=== PATIENT | male | born 1935 | race Caucasian/White ===

== ENCOUNTER 2016-10-27 09:42 | Emergency (ER) | payer MEDICARE ==
--- NOTE | 2016-10-27 10:04 | Emergency Department Record ---
History of Present Illness - General Chief Complaint: Abdominal Pain Stated Complaint: UNABLE TO HAVE BM Time Seen by Provider: 10/27/16 09:52 Source: Patient, Family Mode of Arrival: Ambulatory Limitations: No limitations - History of Present Illness Initial Comments: 81 yo male presents with decreased bowel movements for the last 2 weeks. He states he is typically fairly regular. The last two weeks there have been minimal bowel movements that are small and hard like "rabbit poop". He is on Miralax and drank magnesium citrate this morning. No vomiting but with some decreased appetite. No fevers or chills. No cough or chest pain. He is passing gas but feels like it is less. He has a history of hernia repair, gall bladder. He has had several colonoscopies in the past for anemia. PCP is Dr Valdes of [facility] Complaint: Abdominal pain, Other (Constipation) Onset/Timin -: Week(s) Location: LLQ, RLQ Radiation: Back Severity: Moderate Quality: Cramping Consistency: Intermittent Improves With: Nothing Worsens With: Nothing - Related Data Home Medications Medication Instructions Recorded Confirmed Last Taken Atenolol 12.5 mg PO DAILY 08/31/16 10/27/16 Unknown Atorvastatin Calcium 40 mg PO QHS 08/31/16 10/27/16 Unknown Cholecalciferol (Vitamin D3) 5,000 unit PO DAILY 08/31/16 10/27/16 Unknown [Vitamin D3] Insulin Glargine,Hum.rec.anlog 70 unit SQ QHS 08/31/16 10/27/16 Unknown [Lantus] Insulin Lispro [Humalog] 1 unit SQ ASDIR 08/31/16 10/27/16 Unknown Omeprazole 40 mg PO DAILY 08/31/16 10/27/16 Unknown Potassium Chloride [Klor-Con] 20 meq PO BID 08/31/16 10/27/16 Unknown Ramipril [Altace] 5 mg PO DAILY 08/31/16 10/27/16 Unknown Allergies Allergy/AdvReac Type Severity Reaction Status Date / Time colesevelam HCl AdvReac NAUSEA AND Verified 10/27/16 09:54 [From WelChol] VOMITING Allergies: Allergy Unknown none Uncoded 08/31/16 14:43 Latex Allergy: Allergy Unknown none Uncoded 08/31/16 14:43 Travel Screening - Travel/Exposure Within Last 30 Days Have you traveled within the last 30 days?: No Review of Systems Constitutional: Denies: Chills, Fever, Malaise Eyes: Denies: Eye discharge, Eye pain ENT: Denies: Congestion, Throat pain Respiratory: Denies: Cough, Dyspnea Cardiovascular: Denies: Chest pain, Palpitations, Syncope Endocrine: Denies: Fatigue Gastrointestinal: Reports: As per HPI, Abdominal pain, Constipation. Denies: Diarrhea, Hematemesis, Hematochezia, Nausea, Vomiting Genitourinary: Denies: Dysuria, Frequency Musculoskeletal: Denies: Arthralgia, Back pain, Joint swelling, Myalgia, Neck pain Skin: Denies: Bruising, Change in color, Rash Neurological: Denies: Headache Psychiatric: Denies: Anxiety Hematological/Lymphatic: Denies: Blood Clots, Easy bleeding, Easy bruising, Swollen glands Past Medical History - SOCIAL HISTORY Smoking Status: Never smoker Alcohol Use: None Drug Use: None - RESPIRATORY Hx Respiratory Disorders: No - CARDIOVASCULAR Hx Cardio Disorders: Yes Hx Hypertension: Yes Hx Pacemaker/Defib: Yes Comment:: PVD - NEURO Hx Neuro Disorders: No - GI Hx GI Disorders: Yes Hx Diverticulitis: Yes - Hx Genitourinary Disorders: No Comment:: CKD - ENDOCRINE Hx Endocrine Disorders: Yes Hx Diabetes: Yes - MUSCULOSKELETAL Hx Musculoskeletal Disorders: Yes Hx Arthritis: Yes - PSYCH Hx Psych Problems: No - HEMATOLOGY/ONCOLOGY Hx Hematology/Oncology Disorders: No Family Medical History Any Significant Family History?: Yes Family Hx Comment (NOT TO BE USED IN PLACE OF ITEMS BELOW): son- cancer Physical Exam - General General Appearance: Alert, Oriented x3, Cooperative, No acute distress Limitations: No limitations - Head Head exam: Normal inspection - Eye Eye exam: Normal appearance, PERRL. negative: Conjunctival injection - ENT ENT exam: Normal exam Ear exam: Normal external inspection Nasal Exam: Normal inspection Mouth exam: Normal external inspection - Neck Neck exam: Normal inspection, Full ROM. negative: Tenderness - Respiratory Respiratory exam: Normal lung sounds bilaterally. negative: Accessory muscle use, Decreased breath sounds, Prolonged expiratory, Respiratory distress - Cardiovascular Cardiovascular Exam: Regular rate, Normal rhythm, Normal heart sounds - GI/Abdominal GI/Abdominal exam: Soft. negative: Distended, Guarding, Rebound, Rigid, Tenderness - Rectal Rectal exam: Heme (+) stool, Normal inspection, Other (No stool felt on examination. No gross blood.). negative: Black stool, Bloody stool, Decreased rectal tone, Hemorrhoids, Tenderness - Extremities Extremities exam: Normal inspection, Full ROM, Normal capillary refill. negative: Tenderness - Back Back exam: Reports: Normal inspection, Full ROM. Denies: Muscle spasm, Rash noted, Tenderness - Neurological Neurological exam: Alert, Normal gait, Oriented X3 - Psychiatric Psychiatric exam: Normal affect, Normal mood - Skin Skin exam: Dry, Intact, Normal color, Warm Course Vital Signs 10/27/16 09:46 Temperature 97.9 F Pulse Rate 92 H Respiratory 20 Rate Blood Pressure 142/78 Pulse Ox 96 - Reevaluation(s) Reevaluation #1: Vitals reviewed Patient brought most recent labs Normal last CR. 10/27/16 10:05 Reevaluation #2: Scattered loops of non dilated loops of small bowel and large bowl, consistent with paralytic ileus. No FA 10/27/16 10:37 I discussed the finding with the patient. I recommend CT scan at this time for further evaluation 10/27/16 10:41 Reevaluation #3: The labs were reviewed. No acute changes of the CBC BMP with a glucose of 306 10/27/16 11:20 Reevaluation #4: Awaiting CT The patient has had small soft-liquid stools [place] no blood on inspection 10/27/16 12:[address] He has had additional bowel movements the CT report is pending The patient continues to feel greatly improved after a few bowel movements 10/27/16 13:12 10/27/16 14:02 Reevaluation #5: The CT scan demonstrates a 7cm body/tail pancreatic mass with mets to lung and liver. The patient was informed. He denies any knowledge of prior cancers. I will attempt to contact his PCP Ca19-9 tumor marker ordered 10/27/16 14:22 10/27/16 14:27 - Consultations Consultation #1: I SW Dr Branch He will arrange outpatient follow up for the new pancreatic mass with mets A copy of the CT was given to the patient Medical Decision Making - Lab Data Result diagrams: 10/27/16 10:45 10/27/16 10:45 Disposition Disposition: Discharge Clinical Impression: Pancreatic mass Constipation Qualifiers: Constipation type: other constipation type Qualified Code(s): K59.09 - Other constipation Disposition: Home, Self-Care Condition: (2) Stable Instructions: Constipation (ED), Pancreatic Cancer (GEN) Additional Instructions: Call Dr Branch for follow up and referral for medical oncology You will need a referral to medial oncology for the pancreatic mass that is likely a cancer I sent a blood test that is a tumor marker that can be follow up with your doctor Return if worse, fever, vomiting or new concerns Take a copy of your CT to all your appointments Forms: Patient Portal Access Time of Disposition: 14:28
[2016-10-27] MEDS ORDERED: 0.9 % SODIUM CHLORIDE 1,000 ML BAG IV ONE (10:39)
[2016-10-27 10:58] LABS: BASO % 1.6 % (0-6); GRAN % 64.6 % (47-80); HEMATOCRIT 43.3 % (42.0-52.0); HEMOGLOBIN 14.3 gm/dl (14.0-18.0); LYMPH % 18.9 % (16-45); MEAN CELL VOLUME 90.8 fl (81-97); MEAN PLATELET VOLUME 10.5 fl (7.4-10.4); MONO % 11.9 % (0-9); PLATELET COUNT 204 K/uL (130-400); RED BLOOD COUNT 4.77 M/uL (4.40-5.70); WHITE BLOOD COUNT W/O DIFF 9.8 K/uL (4.2-12.2)
[2016-10-27 11:12] LABS: ALBUMIN 3.8 gm/dL (3.5-5.0); ALKALINE PHOSPHATASE 161 U/L (38-126); ALT/SGPT 42 U/L (21-72); AST/SGOT 35 U/L (17-59); BILIRUBIN,TOTAL 0.93 mg/dL (0.2-1.3); BLOOD UREA NITROGEN 18 mg/dL (9-20); CREATININE 1.2 mg/dL (0.66-1.25); EST GLOMERULAR FILTRATION RATE > 60 ml/min; GLUCOSE,RANDOM 306 mg/dL (70-110); LIPASE 62 U/L (23-300); TOTAL PROTEIN 7.4 gm/dL (6.3-8.2)
--- NOTE | 2016-11-01 08:47 | RADIOLOGY REPORT ---
EXAM: ACUTE ABDOMEN SERIES HISTORY: CONSTIPATION, LOWER ABDOMINAL PAIN. TECHNIQUE: AP view of the chest and five views of the abdomen were obtained. Comparison: Abdomen film 11/04/14. FINDINGS: Left side pacemaker is present. The lungs are clear. The cardiomediastinal silhouette, diaphragm, and osseous structures are unremarkable. No free air. Scattered air fluid levels throughout the small and large bowel which are nondilated. No suspicious calcifications. IMPRESSION: 1. SCATTERED AIR FLUID LEVELS THROUGHOUT NONDISTENDED SMALL AND LARGE BOWEL IN THE ABDOMEN LIKELY DUE TO PARALYTIC ILEUS. NO FREE AIR. 2. NEGATIVE CHEST EXAMINATION. JOB NUMBER: [id number] MTDD
--- NOTE | 2016-11-01 09:30 | CT SCAN REPORT ---
EXAM: ABDOMEN AND PELVIS CT WITH IV CONTRAST HISTORY: GENERALIZED ABDOMINAL PAIN, DECREASED BOWEL MOVEMENTS. TECHNIQUE: Contiguous axial images from the lung bases to the symphysis pubis were obtained after the uneventful intravenous administration of 100 ml of Omnipaque 300. Oral contrast was also utilized. Comparison: Abdomen and pelvis CT 01/28/09. FINDINGS: There are greater than ten nodules in the lower lobes new from the prior study. There are at least five nodules in the right middle lobe. The nodules range in size from 5 mm to 11 mm. There is a new hypoenhancing lesion in the inferior aspect of the lateral segment of the left lobe of the liver measuring 2.2 cm. There is a new hypodense lesion in the posterior segment of the right lobe of the liver measuring 10 mm. The spleen is unremarkable. Unilocular cyst mid right kidney measures 2.7 cm. Numerous left renal cysts, the largest is in the interpolar region measuring 3 cm. The adrenals are unremarkable. There is a new hypoenhancing mass centered in the body and tail of the pancreas occluding the splenic vein measuring 7.6 x 2.8 cm. The mass contacts both the inferior aspect of the proximal stomach. Additional hypoenhancing soft tissue nodule abuts the lesser curvature of the stomach measuring 2.3 cm. Lymph node in the region of the celiac distribution measures 2.3 cm. The gallbladder is absent. The visualized loops of small and large bowel are of normal caliber with normal appendix. No excessive fecal material throughout the colon. No ascites. Moderate aortoiliac calcification. The mesenteric arteries are patent. Metastatic lymph node in the level of the SMA distribution to the left of midline measuring 1.2 x 1.1 cm. No lytic or blastic osseous lesion. IMPRESSION: 1. NEW LARGE PANCREATIC MASS CENTERED AT THE BODY AND TAIL OF THE PANCREAS CONSISTENT WITH PRIMARY MALIGNANCY. THERE IS EVIDENCE OF EXTENSIVE PULMONARY METASTASIS. TWO METASTATIC LIVER LESIONS WELL CHRISTINE METASTASIS IN THE MID ABDOMEN. 2. NO INTESTINAL OBSTRUCTION. NO EXCESSIVE FECAL MATERIAL THROUGHOUT THE COLON. 3. BENIGN BOSNIAK TYPE 1 RENAL CYSTS. JOB NUMBER: [id number] MTDD
== END 2016-10-27 15:02 | disposition home or self-care (01) ==
LOC: ER 09:42
DX: K86.89 Other specified diseases of pancreas (principal); K59.09 Other constipation; R10.84 Generalized abdominal pain; I12.9 Hypertensive chronic kidney disease with stage 1 through stage 4 chronic kidney disease, or unspecified chronic kidney disease; E11.22 Type 2 diabetes mellitus with diabetic chronic kidney disease; N18.9 Chronic kidney disease, unspecified; Z79.4 Long term (current) use of insulin
CPT/HCPCS: 99284 ×2; 83690; 85025; 80076; 80048; 74022; 74177; Q9967; J7030

== ENCOUNTER 2016-10-31 11:07 | Emergency (ER) | payer MEDICARE ==
[2016-10-31] MEDS ORDERED: ONDANSETRON HCL IV 4 MG/2 ML VIAL IVP ONE (11:23)
--- NOTE | 2016-10-31 11:27 | Emergency Department Record ---
History of Present Illness - General Chief Complaint: Fall Injury Stated Complaint: FALL/VOMITING Time Seen by Provider: 10/31/16 11:22 Source: Patient Mode of Arrival: Wheelchair Limitations: No limitations - History of Present Illness Initial Comments: 81 yo male presents to ED with a CC of nausea and dry heaves that began about 1.5 hours prior to arrival. Patient reports that he became nauseated and feel to the floor injuring his left elbow, denies injury to the head or neck. Patient was brought to the hospital for evaluation of possible pancreatitis as he was recently diagnosed with pancreatic cancer. Onset/Timin -: Hour(s) Fall From: Standing When Fall Occurred: 1-3 hours BAND [place]OVER Fall Witnessed: No Place Fall Occurred: Home Loss of Consciousness: None Prolonged Down Time?: No Symptoms Prior to Fall: None Location: Other Location - Extremities: Left: Elbow Associated Symptoms: Lightheaded, Other - [place] Coma Scale Eye Response: (4) Open spontaneously Motor Response: (6) Obeys commands Verbal Response: (5) Oriented [place] Total: 15 - Related Data Home Medications Medication Instructions Recorded Confirmed Last Taken Atenolol 12.5 mg PO DAILY 08/31/16 10/31/16 10/30/16 Atorvastatin Calcium 40 mg PO QHS 08/31/16 10/31/16 10/30/16 Cholecalciferol (Vitamin D3) 5,000 unit PO DAILY 08/31/16 10/31/16 10/30/16 [Vitamin D3] Insulin Glargine,Hum.rec.anlog 70 unit SQ QHS 08/31/16 10/31/16 10/30/16 [Lantus] Insulin Lispro [Humalog] 1 unit SQ ASDIR 08/31/16 10/31/16 10/30/16 Omeprazole 40 mg PO DAILY 08/31/16 10/31/16 10/30/16 Potassium Chloride [Klor-Con] 20 meq PO BID 08/31/16 10/31/16 10/30/16 Ramipril [Altace] 5 mg PO DAILY 08/31/16 10/31/16 10/30/16 Allergies Allergy/AdvReac Type Severity Reaction Status Date / Time colesevelam HCl AdvReac NAUSEA AND Verified 10/31/16 11:15 [From WelChol] VOMITING Allergies: Allergy Unknown none Uncoded 08/31/16 14:43 Latex Allergy: Allergy Unknown none Uncoded 08/31/16 14:43 Travel Screening - Travel/Exposure Within Last 30 Days Have you traveled within the last 30 days?: No Review of Systems Constitutional: Denies: Chills, Fever, Malaise, Night sweats Eyes: Denies: Eye discharge, Eye pain ENT: Denies: Congestion, Ear pain Respiratory: Denies: Cough, Dyspnea Cardiovascular: Denies: Chest pain, Dyspnea on exertion Endocrine: Denies: Fatigue, Heat or cold intolerance Gastrointestinal: Reports: Nausea, Vomiting. Denies: Abdominal pain Genitourinary: Denies: Incontinence, Retention Musculoskeletal: Reports: Arthralgia (left elbow). Denies: Back pain, Gout, Joint swelling Skin: Denies: Bruising, Change in color Neurological: Denies: Abnormal gait, Confusion, Headache, Numbness, Seizure, Weakness Psychiatric: Denies: Anxiety Hematological/Lymphatic: Denies: Anemia, Blood Clots Past Medical History - SOCIAL HISTORY Smoking Status: Never smoker Alcohol Use: None Drug Use: None - RESPIRATORY Hx Respiratory Disorders: No - CARDIOVASCULAR Hx Cardio Disorders: Yes Hx Hypertension: Yes Hx Pacemaker/Defib: Yes Comment:: PVD - NEURO Hx Neuro Disorders: No - GI Hx GI Disorders: Yes Hx Diverticulitis: Yes - Hx Genitourinary Disorders: No Comment:: CKD - ENDOCRINE Hx Endocrine Disorders: Yes Hx Diabetes: Yes - MUSCULOSKELETAL Hx Musculoskeletal Disorders: Yes Hx Arthritis: Yes - PSYCH Hx Psych Problems: No - HEMATOLOGY/ONCOLOGY Hx Hematology/Oncology Disorders: No Family Medical History Any Significant Family History?: Yes Family Hx Comment (NOT TO BE USED IN PLACE OF ITEMS BELOW): son- cancer Physical Exam - General General Appearance: Alert, Oriented x3, Cooperative, No acute distress Limitations: No limitations - Head Head exam: Atraumatic, Normocephalic, Normal inspection Head exam detail: negative: Abrasion, Contusion, Alfonso's sign, General tenderness, Hematoma, Laceration - Eye Eye exam: Normal appearance. negative: Conjunctival injection, Periorbital swelling, Periorbital tenderness, Scleral icterus - ENT Ear exam: negative: Auricular hematoma, Auricular trauma Nasal Exam: negative: Active bleeding, Discharge, Dried blood, Foreign body Mouth exam: negative: Drooling, Laceration, Muffled voice, Tongue elevation - Neck Neck exam: Normal inspection. negative: Meningismus, Tenderness - Respiratory Respiratory exam: Normal lung sounds bilaterally. negative: Rhonchi, Stridor, Wheezes - Cardiovascular Cardiovascular Exam: Regular rate, Normal rhythm, Normal heart sounds Peripheral Pulses: 3+: Radial (L) - GI/Abdominal GI/Abdominal exam: Soft. negative: Rebound, Rigid, Tenderness - Rectal Rectal exam: Deferred - exam: Deferred - Extremities Extremities exam: Full ROM, Other (mild abrasion to the left proximal forearm/ elbow, FROM, no pain with ROM). negative: Calf tenderness, Pedal edema, Tenderness - Back Back exam: Denies: CVA tenderness (R), CVA tenderness (L) - Neurological Neurological exam: Alert, Normal gait, Oriented X3 - Psychiatric Psychiatric exam: Normal affect, Normal mood - Skin Skin exam: Normal color. negative: Abrasion Type of lesion: negative: abrasion Course Vital Signs 10/31/16 11:10 Temperature 97.4 F L Pulse Rate 74 Respiratory 20 Rate Blood Pressure 178/92 Pulse Ox 93 L - Reevaluation(s) Reevaluation #1: 10/31/16 12:10 Labs reviewed, WBC 13.4, otherwise labs appears at her baseline. Reevaluation #2: 10/31/16 12:15 Patient was updated on all results, reports that he is feeling much better. Will perform ambulation trial for his previous dizziness symptoms. Reevaluation #3: 10/31/16 12:31 EKG: NSR 67 Incomplete RBBB T wave inversion III only unchanged from 01/28/2009 Reevaluation #4: 10/31/16 13:14 Patient reassessed following antivert, ambulated with steady gait and reports that he is feeling better. Patient and his daughter are asking to be discharged home at this time, and reports that he has an appointment with Dr. Branch tomorrow as well. Patient appears stable for discharge at this time. Medical Decision Making - Lab Data Result diagrams: 10/31/16 11:30 10/31/16 11:30 Disposition Disposition: Discharge Clinical Impression: Fall Qualifiers: Encounter type: initial encounter Qualified Code(s): W19.XXXA - Unspecified fall, initial encounter Nausea & vomiting Qualifiers: Vomiting type: unspecified Vomiting Intractability: non-intractable Qualified Code(s): R11.2 - Nausea with vomiting, unspecified Disposition: Home, Self-Care Condition: (2) Stable Instructions: Fall Prevention for Older Adults (ED) Additional Instructions: return to ED if your symptoms worsen or if you have any concerns. Follow-up with your family doctor in 1-3 days as directed. Forms: Patient Portal Access Time of Disposition: 13:15
[2016-10-31] MEDS ORDERED: 0.9 % SODIUM CHLORIDE 1000ML 500 ML IV SCH (11:30)
[2016-10-31 11:40] LABS: BASO % 0.7 % (0-6); EOS % 1.6 % (0-6); GRAN % 79.6 % (47-80); HEMATOCRIT 44.2 % (42.0-52.0); HEMOGLOBIN 14.6 gm/dl (14.0-18.0); LYMPH % 10.6 % (16-45); MEAN CELL VOLUME 89.8 fl (81-97); MEAN CORPUSCULAR HEMOGLOBIN 29.7 pg (27-33); MEAN PLATELET VOLUME 10.7 fl (7.4-10.4); MONO % 7.5 % (0-9); PLATELET COUNT 211 K/uL (130-400); RED BLOOD COUNT 4.92 M/uL (4.40-5.70); WHITE BLOOD COUNT W/O DIFF 13.4 K/uL (4.2-12.2)
[2016-10-31 11:54] LABS: ALB/GLOB RATIO 1.1 (1.1-1.8); ALBUMIN 4.1 gm/dL (3.5-5.0); ANION GAP 16.4 (7-16); BILIRUBIN,TOTAL 0.78 mg/dL (0.2-1.3); CARBON DIOXIDE 29.6 mmol/L (22-30); CREATININE 1.3 mg/dL (0.66-1.25)
[2016-10-31] MEDS ORDERED: MECLIZINE 25 MG TABLET PO ONE (12:16)
== END 2016-10-31 13:25 | disposition home or self-care (01) ==
LOC: ER 11:07
DX: S59.902A Unspecified injury of left elbow, initial encounter (principal); R42 Dizziness and giddiness; R11.2 Nausea with vomiting, unspecified; E11.9 Type 2 diabetes mellitus without complications; Z79.4 Long term (current) use of insulin; I10 Essential (primary) hypertension; W19.XXXA Unspecified fall, initial encounter; Y92.009 Unspecified place in unspecified non-institutional (private) residence as the place of occurrence of the external cause
CPT/HCPCS: 99284 ×2; 96374; 96361; 83690; 85025; 80053; 36416; 82948; 93005; 93010; J2405; J7030

== ENCOUNTER 2016-12-27 17:24 | Emergency (ER) | payer MEDICARE ==
[2016-12-27] MEDS ORDERED: MORPHINE SULFATE 5 MG/ML PFS IVP ONE (19:24)
[2016-12-27] MEDS: ONDANSETRON HCL IV 4 MG/2 ML VIAL IVP ONE (19:35)
[2016-12-27] MEDS: 0.9 % SODIUM CHLORIDE 1000ML 1,000 ML IV ONE (19:35)
[2016-12-27 19:37] LABS: HEMATOCRIT 40.8 % (42.0-52.0); HEMOGLOBIN 13.2 gm/dl (14.0-18.0); MEAN CELL VOLUME 95.1 fl (81-97); MEAN CORPUSCULAR HGB CONC 32.4 g/dl (32-36); PLATELET COUNT 282 K/uL (130-400); RED BLOOD COUNT 4.29 M/uL (4.40-5.70); RED CELL DISTRIBUTION WIDTH 15.1 % (11.5-14.5); WHITE BLOOD COUNT W/O DIFF 5.3 K/uL (4.2-12.2)
[2016-12-27 19:39] LABS: MEAN CORPUSCULAR HEMOGLOBIN 30.7 pg (27-33)
[2016-12-27 19:50] LABS: ALB/GLOB RATIO 0.9 (1.1-1.8); ALBUMIN 3.5 gm/dL (3.5-5.0); ALKALINE PHOSPHATASE 470 U/L (38-126); ALT/SGPT 103 U/L (21-72); ANION GAP 9.9 (7-16); AST/SGOT 170 U/L (17-59); BILIRUBIN,TOTAL 0.95 mg/dL (0.2-1.3); BLOOD UREA NITROGEN 14 mg/dL (9-20); CARBON DIOXIDE 29.1 mmol/L (22-30); EST GLOMERULAR FILTRATION RATE > 60 ml/min; TOTAL PROTEIN 7.2 gm/dL (6.3-8.2)
[2016-12-27 19:50] LABS: URINE APPEARANCE CLEAR; URINE BILIRUBIN NEGATIVE (NEGATIVE); URINE BLOOD NEGATIVE (NEGATIVE); URINE COLOR YELLOW; URINE KETONE TRACE (NEGATIVE); URINE LEUKOCYTE ESTERASE NEGATIVE (NEGATIVE); URINE NITRITE NEGATIVE (NEGATIVE); URINE PROTEIN NEGATIVE (NEGATIVE); URINE UROBILINOGEN 0.2 E.U./dL (0.20 - 1.00)
[2016-12-27 19:53] LABS: URINE GLUCOSE (UA) >=1000 mg/dL (NEGATIVE)
[2016-12-27 19:57] LABS: GLUCOSE,RANDOM 451 mg/dL (70-110)
--- NOTE | 2016-12-27 22:34 | Emergency Department Record ---
History of Present Illness - General Chief Complaint: Abdominal Pain Stated Complaint: CONSTIPATION Time Seen by Provider: 12/27/16 19:14 Source: Patient, Family Mode of Arrival: Wheelchair Limitations: No limitations - History of Present Illness Initial Comments: pt has constipation and abd pain. pt was recently dxd w pancreatic ca and is on chemo. pt is also having back pain. pt is on pain pills. pt has tried laxatives and mag citrate without success. MD Complaint: Abdominal pain Onset/Timin -: Hour(s) Location: L Flank, LLQ, Other (back) Migration to: No migration Severity: Moderate Quality: Aching Consistency: Constant Improves With: Nothing Worsens With: Movement Associated Symptoms: Constipation - Related Data Home Medications Medication Instructions Recorded Confirmed Last Taken Atenolol 12.5 mg PO DAILY 08/31/16 12/27/16 1 Day Ago Atorvastatin Calcium 40 mg PO QHS 08/31/16 12/27/16 1 Day Ago Cholecalciferol (Vitamin D3) 5,000 unit PO DAILY 08/31/16 12/27/16 1 Day Ago [Vitamin D3] Insulin Glargine,Hum.rec.anlog 70 unit SQ QHS 08/31/16 12/27/16 1 Day Ago [Lantus] Insulin Lispro [Humalog] 1 unit SQ ASDIR 08/31/16 12/27/16 1 Day Ago Omeprazole 40 mg PO DAILY 08/31/16 12/27/16 1 Day Ago Potassium Chloride [Klor-Con] 20 meq PO BID 08/31/16 12/27/16 1 Day Ago Ramipril [Altace] 5 mg PO DAILY 08/31/16 12/27/16 1 Day Ago Docusate Sodium [Colace] 100 mg PO DAILY 12/10/16 12/27/16 1 Day Ago Hydrocodone/Acetaminophen [[place] 1 tab PO Q6H PRN 12/10/16 12/27/16 1 Day Ago 7.5mg/325mg] Lactulose 15 gm PO TID 12/10/16 12/27/16 1 Day Ago Hydrocodone/Acetaminophen [[place] 1 tab PO Q6H PRN 12/27/16 12/27/16 1 Day Ago 7.5mg/325mg] Oxycodone HCl [Oxycontin] 10 mg PO Q12H 12/27/16 12/27/16 1 Day Ago Allergies Allergy/AdvReac Type Severity Reaction Status Date / Time colesevelam HCl AdvReac NAUSEA AND Verified 12/27/16 18:59 [From [facility]] VOMITING Travel Screening - Travel/Exposure Within Last 30 Days Have you traveled within the last 30 days?: No - Travel/Exposure Within Last Year Have you traveled outside the [place] in the last year?: No - Additonal Travel Details Have you been exposed to anyone with a communicable illness?: No - Travel Symptoms Symptom Screening: None Review of Systems Reviewed: No additional complaints except as noted below Constitutional: Reports: As per HPI. Denies: Chills, Fever, Malaise, Night sweats, Weakness, Weight change Eyes: Reports: As per HPI. Denies: Eye discharge, Eye pain, Photophobia, Vision change ENT: Reports: As per HPI. Denies: Congestion, Dental pain, Ear pain, Epistaxis , Hearing loss, Throat pain Respiratory: Reports: As per HPI. Denies: Cough, Dyspnea, Hemoptysis, Stridor, Wheezes Cardiovascular: Reports: As per HPI. Denies: Arrhythmia, Chest pain, Dyspnea on exertion, Edema, Murmurs, Orthopnea, Palpitations, Paroxysmal nocturnal dyspnea, Rheumatic Fever, Syncope Endocrine: Reports: As per HPI. Denies: Fatigue, Heat or cold intolerance, Polydipsia, Polyuria Gastrointestinal: Reports: As per HPI. Denies: Abdominal pain, Constipation, Diarrhea, Hematemesis, Hematochezia, Melena, Nausea, Vomiting Genitourinary: Reports: As per HPI. Denies: Dysuria, Frequency, Hematuria, Incontinence, Retention, Testicular pain, Testicular mass, Urgency Musculoskeletal: Reports: As per HPI. Denies: Arthralgia, Back pain, Gout, Joint swelling, Myalgia, Neck pain Skin: Reports: As per HPI. Denies: Bruising, Change in color, Change in hair/ nails, Lesions, Pruritus, Rash Neurological: Reports: As per HPI. Denies: Abnormal gait, Confusion, Headache, Numbness, Paresthesias, Seizure, Tingling, Tremors, Vertigo, Weakness Psychiatric: Reports: As per HPI. Denies: Anxiety, Auditory hallucinations, Depression, Homicidal thoughts, Suicidal thoughts, Visual hallucinations Hematological/Lymphatic: Reports: As per HPI. Denies: Anemia, Blood Clots, Easy bleeding, Easy bruising, Swollen glands Past Medical History - SOCIAL HISTORY Smoking Status: Never smoker Alcohol Use: None Drug Use: None - RESPIRATORY Hx Respiratory Disorders: No - CARDIOVASCULAR Hx Cardio Disorders: Yes Hx Hypertension: Yes Hx Pacemaker/Defib: Yes Comment:: PVD - NEURO Hx Neuro Disorders: No - GI Hx GI Disorders: Yes Hx Diverticulitis: Yes - Hx Genitourinary Disorders: No Comment:: CKD - ENDOCRINE Hx Endocrine Disorders: Yes Hx Diabetes: Yes - MUSCULOSKELETAL Hx Musculoskeletal Disorders: Yes Hx Arthritis: Yes - PSYCH Hx Psych Problems: No - HEMATOLOGY/ONCOLOGY Hx Hematology/Oncology Disorders: No Hx Cancer: Yes (Pancreatic oct 27) Hx Chemotherapy: Yes (12/27/2016) Family Medical History Any Significant Family History?: Yes Family Hx Comment (NOT TO BE USED IN PLACE OF ITEMS BELOW): son- cancer Physical Exam - General General Appearance: Alert, Oriented x3, Cooperative, Mild distress - Head Head exam: Normal inspection - Eye Eye exam: Normal appearance, PERRL, EOMI Pupils: Normal accommodation - ENT ENT exam: Normal exam, Mucous membranes moist, Normal external ear exam, Normal orophraynx Ear exam: Normal external inspection. negative: External canal tenderness Nasal Exam: Normal inspection. negative: Discharge, Sinus tenderness Mouth exam: Normal external inspection, Tongue normal Teeth exam: Normal inspection. negative: Dental caries Throat exam: Normal inspection. negative: Tonsillar erythema, Tonsillar exudate - Neck Neck exam: Normal inspection, Full ROM. negative: Tenderness - Respiratory Respiratory exam: Normal lung sounds bilaterally. negative: Respiratory distress - Cardiovascular Cardiovascular Exam: Regular rate, Normal rhythm, Normal heart sounds - GI/Abdominal GI/Abdominal exam: Soft, Normal bowel sounds, Tenderness - Rectal Rectal exam: Deferred - exam: Deferred - Extremities Extremities exam: Normal inspection, Full ROM, Normal capillary refill. negative: Tenderness - Back Back exam: Reports: Normal inspection, Full ROM. Denies: Muscle spasm, Rash noted, Tenderness - Neurological Neurological exam: Alert, CN II-XII intact, Normal gait, Oriented X3 - Psychiatric Psychiatric exam: Normal affect, Normal mood - Skin Skin exam: Dry, Intact, Normal color, Warm Course Vital Signs 12/27/16 12/27/16 18:47 20:49 Temperature 98.2 F 97.9 F Pulse Rate 92 H Pulse Rate [ 82 Pulse Ox Probe] Respiratory 20 24 Rate Blood Pressure 158/89 Blood Pressure 137/69 [Left Arm] Pulse Ox 95 92 L - Reevaluation(s) Reevaluation #1: 12/27/16 22:35 pt had good results w enema and feels better. pt has new comp fx of l1 w no loss of height. Medical Decision Making - Lab Data Result diagrams: 12/27/16 19:30 12/27/16 19:30 Lab Results 12/27/16 12/27/16 12/27/16 Range/Units 19:30 19:30 19:45 WBC 5.3 (4.2-12.2) K/uL RBC 4.29 L (4.40-5.70) M/uL Hgb 13.2 L (14.0-18.0) gm/dl Hct 40.8 L (42.0-52.0) % MCV 95.1 (81-97) fl MCH 30.7 (27-33) pg MCHC 32.4 (32-36) g/dl RDW 15.1 H (11.5-14.5) % Plt Count 282 (130-400) K/uL MPV 10.0 (7.4-10.4) fl Neutrophils % 83.0 H (47-80) % Lymphocytes % 10.0 L (16-45) % Monocytes % 7.0 (0-9) % Eosinophils % Not Reportable Basophils % Not Reportable Sodium 136 (136-145) mmol/L Potassium 5.5 H (3.5-5.1) mmol/L Chloride 97 L (98-107) mmol/L Carbon Dioxide 29.1 (22-30) mmol/L Anion Gap 9.9 (7-16) BUN 14 (9-20) mg/dL Creatinine 1.0 (0.66-1.25) mg/dL Estimated GFR > 60 ml/min Random Glucose 451 H* (70-110) mg/dL Calcium 8.4 L (8.5-10.1) mg/dL Total Bilirubin 0.95 (0.2-1.3) mg/dL AST 170 H (17-59) U/L ALT 103 H (21-72) U/L Alkaline Phosphatase 470 H (38-126) U/L Total Protein 7.2 (6.3-8.2) gm/dL Albumin 3.5 (3.5-5.0) gm/dL Globulin 3.7 (1.4-4.8) gm/dL Albumin/Globulin Ratio 0.9 L (1.1-1.8) Urine Color Yellow Urine Appearance Clear Urine pH 6.0 (5.0-8.0) Ur Specific [place] 1.020 (1.002-1.030) Urine Protein Negative (NEGATIVE) Urine Glucose (UA) >=1000 mg/dl H (NEGATIVE) Urine Ketones Trace H (NEGATIVE) Urine Blood Negative (NEGATIVE) Urine Nitrite Negative (NEGATIVE) Urine Bilirubin Negative (NEGATIVE) Urine Urobilinogen 0.2 (0.20 - 1.00) E.U./dL Ur Leukocyte Esterase Negative (NEGATIVE) Disposition Disposition: Discharge Clinical Impression: Lumbar compression fracture Qualifiers: Encounter type: initial encounter Fracture type: closed Qualified Code(s): S32.000A - Wedge compression fracture of unspecified lumbar vertebra, initial encounter for closed fracture Abdominal pain Qualifiers: Abdominal location: generalized Qualified Code(s): R10.84 - Generalized abdominal pain Constipation Qualifiers: Constipation type: other constipation type Qualified Code(s): K59.09 - Other constipation Hyperglycemia due to type 2 diabetes mellitus Qualifiers: Diabetes mellitus longterm insulin use: with supervisor carton and can supply use Qualified Code(s): E11.65 - Type 2 diabetes mellitus with hyperglycemia Disposition: Home, Self-Care Condition: (1) Good Instructions: Constipation (ED), Vertebral Compression Fracture (ED), Diabetic Hyperglycemia (ED) Additional Instructions: follow up with family doctor and with oncologist. return sooner if worse. Forms: Patient Portal Access
[2016-12-27] MEDS: HUMULIN R 100 UNIT/ML VIAL SQ ONE ×2 (22:50→23:32)
[2016-12-27] MEDS ORDERED: HUMULIN R 100 UNIT/ML VIAL SC ONE ×2 (23:30→23:59)
[2016-12-28] MEDS: HUMULIN R 100 UNIT/ML VIAL SQ ONE (00:16)
--- NOTE | 2016-12-28 01:45 | Emergency Department Record ---
History of Present Illness - General Chief Complaint: Abdominal Pain Stated Complaint: CONSTIPATION Time Seen by Provider: 12/27/16 19:14 Source: Patient, Family Mode of Arrival: Wheelchair Limitations: No limitations - History of Present Illness MD Complaint: Abdominal pain Onset/Timin -: Hour(s) Location: L Flank, LLQ, Other (back) Migration to: No migration Severity: Moderate Quality: Aching Consistency: Constant Improves With: Nothing Worsens With: Movement Associated Symptoms: Constipation - Related Data Home Medications Medication Instructions Recorded Confirmed Last Taken Atenolol 12.5 mg PO DAILY 08/31/16 12/27/16 1 Day Ago Atorvastatin Calcium 40 mg PO QHS 08/31/16 12/27/16 1 Day Ago Cholecalciferol (Vitamin D3) 5,000 unit PO DAILY 08/31/16 12/27/16 1 Day Ago [Vitamin D3] Insulin Glargine,Hum.rec.anlog 70 unit SQ QHS 08/31/16 12/27/16 1 Day Ago [Lantus] Insulin Lispro [Humalog] 1 unit SQ ASDIR 08/31/16 12/27/16 1 Day Ago Omeprazole 40 mg PO DAILY 08/31/16 12/27/16 1 Day Ago Potassium Chloride [Klor-Con] 20 meq PO BID 08/31/16 12/27/16 1 Day Ago Ramipril [Altace] 5 mg PO DAILY 08/31/16 12/27/16 1 Day Ago Docusate Sodium [Colace] 100 mg PO DAILY 12/10/16 12/27/16 1 Day Ago Hydrocodone/Acetaminophen [[place] 1 tab PO Q6H PRN 12/10/16 12/27/16 1 Day Ago 7.5mg/325mg] Lactulose 15 gm PO TID 12/10/16 12/27/16 1 Day Ago Hydrocodone/Acetaminophen [[place] 1 tab PO Q6H PRN 12/27/16 12/27/16 1 Day Ago 7.5mg/325mg] Oxycodone HCl [Oxycontin] 10 mg PO Q12H 12/27/16 12/27/16 1 Day Ago Allergies Allergy/AdvReac Type Severity Reaction Status Date / Time colesevelam HCl AdvReac NAUSEA AND Verified 12/27/16 18:59 [From [facility]] VOMITING Travel Screening - Travel/Exposure Within Last 30 Days Have you traveled within the last 30 days?: No - Travel/Exposure Within Last Year Have you traveled outside the [place] in the last year?: No - Additonal Travel Details Have you been exposed to anyone with a communicable illness?: No - Travel Symptoms Symptom Screening: None Review of Systems Constitutional: Reports: As per HPI. Denies: Chills, Fever, Malaise, Night sweats, Weakness, Weight change Eyes: Reports: As per HPI. Denies: Eye discharge, Eye pain, Photophobia, Vision change ENT: Reports: As per HPI. Denies: Congestion, Dental pain, Ear pain, Epistaxis , Hearing loss, Throat pain Respiratory: Reports: As per HPI. Denies: Cough, Dyspnea, Hemoptysis, Stridor, Wheezes Cardiovascular: Reports: As per HPI. Denies: Arrhythmia, Chest pain, Dyspnea on exertion, Edema, Murmurs, Orthopnea, Palpitations, Paroxysmal nocturnal dyspnea, Rheumatic Fever, Syncope Endocrine: Reports: As per HPI. Denies: Fatigue, Heat or cold intolerance, Polydipsia, Polyuria Gastrointestinal: Reports: As per HPI. Denies: Abdominal pain, Constipation, Diarrhea, Hematemesis, Hematochezia, Melena, Nausea, Vomiting Genitourinary: Reports: As per HPI. Denies: Dysuria, Frequency, Hematuria, Incontinence, Retention, Testicular pain, Testicular mass, Urgency Musculoskeletal: Reports: As per HPI. Denies: Arthralgia, Back pain, Gout, Joint swelling, Myalgia, Neck pain Skin: Reports: As per HPI. Denies: Bruising, Change in color, Change in hair/ nails, Lesions, Pruritus, Rash Neurological: Reports: As per HPI. Denies: Abnormal gait, Confusion, Headache, Numbness, Paresthesias, Seizure, Tingling, Tremors, Vertigo, Weakness Psychiatric: Reports: As per HPI. Denies: Anxiety, Auditory hallucinations, Depression, Homicidal thoughts, Suicidal thoughts, Visual hallucinations Hematological/Lymphatic: Reports: As per HPI. Denies: Anemia, Blood Clots, Easy bleeding, Easy bruising, Swollen glands Past Medical History - SOCIAL HISTORY Smoking Status: Never smoker Alcohol Use: None Drug Use: None - RESPIRATORY Hx Respiratory Disorders: No - CARDIOVASCULAR Hx Cardio Disorders: Yes Hx Hypertension: Yes Hx Pacemaker/Defib: Yes Comment:: PVD - NEURO Hx Neuro Disorders: No - GI Hx GI Disorders: Yes Hx Diverticulitis: Yes - Hx Genitourinary Disorders: No Comment:: CKD - ENDOCRINE Hx Endocrine Disorders: Yes Hx Diabetes: Yes - MUSCULOSKELETAL Hx Musculoskeletal Disorders: Yes Hx Arthritis: Yes - PSYCH Hx Psych Problems: No - HEMATOLOGY/ONCOLOGY Hx Hematology/Oncology Disorders: No Hx Cancer: Yes (Pancreatic oct 27) Hx Chemotherapy: Yes (12/27/2016) Family Medical History Any Significant Family History?: Yes Family Hx Comment (NOT TO BE USED IN PLACE OF ITEMS BELOW): son- cancer Physical Exam - General Limitations: No limitations Course Vital Signs 12/27/16 12/27/16 12/27/16 18:47 20:49 23:35 Temperature 98.2 F 97.9 F Pulse Rate 92 H Pulse Rate [ 82 93 H Pulse Ox Probe] Respiratory 20 24 16 Rate Blood Pressure 158/89 Blood Pressure 137/69 134/78 [Left Arm] Pulse Ox 95 92 L 88 L - Reevaluation(s) Reevaluation #1: 12/28/16 01:44 pt confessed that he had been drinking his daughters coca cola Medical Decision Making - Lab Data Result diagrams: 12/27/16 19:30 12/27/16 19:30 Lab Results 12/27/16 12/27/16 12/27/16 Range/Units 19:30 19:30 19:45 WBC 5.3 (4.2-12.2) K/uL RBC 4.29 L (4.40-5.70) M/uL Hgb 13.2 L (14.0-18.0) gm/dl Hct 40.8 L (42.0-52.0) % MCV 95.1 (81-97) fl MCH 30.7 (27-33) pg MCHC 32.4 (32-36) g/dl RDW 15.1 H (11.5-14.5) % Plt Count 282 (130-400) K/uL MPV 10.0 (7.4-10.4) fl Neutrophils % 83.0 H (47-80) % Lymphocytes % 10.0 L (16-45) % Monocytes % 7.0 (0-9) % Eosinophils % Not Reportable Basophils % Not Reportable Sodium 136 (136-145) mmol/L Potassium 5.5 H (3.5-5.1) mmol/L Chloride 97 L (98-107) mmol/L Carbon Dioxide 29.1 (22-30) mmol/L Anion Gap 9.9 (7-16) BUN 14 (9-20) mg/dL Creatinine 1.0 (0.66-1.25) mg/dL Estimated GFR > 60 ml/min POC Glucose (70-110) mg/dL Random Glucose 451 H* (70-110) mg/dL Calcium 8.4 L (8.5-10.1) mg/dL Total Bilirubin 0.95 (0.2-1.3) mg/dL AST 170 H (17-59) U/L ALT 103 H (21-72) U/L Alkaline Phosphatase 470 H (38-126) U/L Total Protein 7.2 (6.3-8.2) gm/dL Albumin 3.5 (3.5-5.0) gm/dL Globulin 3.7 (1.4-4.8) gm/dL Albumin/Globulin Ratio 0.9 L (1.1-1.8) Urine Color Yellow Urine Appearance Clear Urine pH 6.0 (5.0-8.0) Ur Specific [place] 1.020 (1.002-1.030) Urine Protein Negative (NEGATIVE) Urine Glucose (UA) >=1000 mg/dl H (NEGATIVE) Urine Ketones Trace H (NEGATIVE) Urine Blood Negative (NEGATIVE) Urine Nitrite Negative (NEGATIVE) Urine Bilirubin Negative (NEGATIVE) Urine Urobilinogen 0.2 (0.20 - 1.00) E.U./dL Ur Leukocyte Esterase Negative (NEGATIVE) 12/27/16 12/28/16 12/28/16 Range/Units 23:26 00:06 00:56 WBC (4.2-12.2) K/uL RBC (4.40-5.70) M/uL Hgb (14.0-18.0) gm/dl Hct (42.0-52.0) % MCV (81-97) fl MCH (27-33) pg MCHC (32-36) g/dl RDW (11.5-14.5) % Plt Count (130-400) K/uL MPV (7.4-10.4) fl Neutrophils % (47-80) % Lymphocytes % (16-45) % Monocytes % (0-9) % Eosinophils % Basophils % Sodium (136-145) mmol/L Potassium (3.5-5.1) mmol/L Chloride (98-107) mmol/L Carbon Dioxide (22-30) mmol/L Anion Gap (7-16) BUN (9-20) mg/dL Creatinine (0.66-1.25) mg/dL Estimated GFR ml/min POC Glucose 344 H 383 H 347 H (70-110) mg/dL Random Glucose (70-110) mg/dL Calcium (8.5-10.1) mg/dL Total Bilirubin (0.2-1.3) mg/dL AST (17-59) U/L ALT (21-72) U/L Alkaline Phosphatase (38-126) U/L Total Protein (6.3-8.2) gm/dL Albumin (3.5-5.0) gm/dL Globulin (1.4-4.8) gm/dL Albumin/Globulin Ratio (1.1-1.8) Urine Color Urine Appearance Urine pH (5.0-8.0) Ur Specific [place] (1.002-1.030) Urine Protein (NEGATIVE) Urine Glucose (UA) (NEGATIVE) Urine Ketones (NEGATIVE) Urine Blood (NEGATIVE) Urine Nitrite (NEGATIVE) Urine Bilirubin (NEGATIVE) Urine Urobilinogen (0.20 - 1.00) E.U./dL Ur Leukocyte Esterase (NEGATIVE) Disposition Clinical Impression: Lumbar compression fracture Qualifiers: Encounter type: initial encounter Fracture type: closed Qualified Code(s): S32.000A - Wedge compression fracture of unspecified lumbar vertebra, initial encounter for closed fracture Abdominal pain Qualifiers: Abdominal location: generalized Qualified Code(s): R10.84 - Generalized abdominal pain Constipation Qualifiers: Constipation type: other constipation type Qualified Code(s): K59.09 - Other constipation Hyperglycemia due to type 2 diabetes mellitus Qualifiers: Diabetes mellitus assisted insulin use: with exterminator termite use Qualified Code(s): E11.65 - Type 2 diabetes mellitus with hyperglycemia Disposition: Home, Self-Care Condition: (1) Good Instructions: Constipation (ED), Vertebral Compression Fracture (ED), Diabetic Hyperglycemia (ED) Additional Instructions: follow up with family doctor and with oncologist. return sooner if worse. Forms: Patient Portal Access
--- NOTE | 2016-12-28 12:15 | CT SCAN REPORT ---
EXAM: CT OF THE ABDOMEN AND PELVIS WITHOUT CONTRAST HISTORY: LOWER ABDOMINAL PAIN. TECHNIQUE: Sequential axial images were obtained from the diaphragms through the ischiorectal fossa without intravenous or oral contrast administration. Comparison: 10/27/16. FINDINGS: There are multiple ground glass nodular opacities throughout both lung bases. These have decreased in size when compared to the prior exam dated 10/27/16. There is cardiomegaly without pericardial effusion. The nonopacified liver appears grossly unremarkable. There is abnormal soft tissue density in the pancreatic tail region. The spleen appears grossly unremarkable. The adrenal glands appear normal. There are cystic lesions in both kidneys. The small bowel appears normal. There is increased stool within the rectum. The prostate gland and urinary bladder appears grossly unremarkable. There is a fat containing umbilical hernia. There is atheromatous change of the abdominal vasculature. Stable degenerative change at the L3-L4 level. New concave compression fracture deformity at the superior end plate of L1. IMPRESSION: 1. INTERVAL DECREASE IN SIZE OF THE NODULAR LESIONS IN THE VISUALIZED LUNG BASES. 2. PERSISTENT SOFT TISSUE MASS IN THE PANCREATIC BODY/TAIL REGION. 3. STABLE CYSTIC LESIONS IN BOTH KIDNEYS. 4. INCREASED STOOL IN THE COLON AND RECTUM. 5. NEW SUPERIOR END PLATE COMPRESSION FRACTURE DEFORMITY OF L1. NO SIGNIFICANT LOSS OF HEIGHT. STABLE DEGENERATIVE CHANGE AT L3-L4. JOB NUMBER: [id number] [facility]
== END 2016-12-28 01:15 | disposition home or self-care (01) ==
LOC: ER 17:24
DX: E11.65 Type 2 diabetes mellitus with hyperglycemia (principal); Z79.4 Long term (current) use of insulin; K59.09 Other constipation; S32.000A Wedge compression fracture of unspecified lumbar vertebra, initial encounter for closed fracture; C25.9 Malignant neoplasm of pancreas, unspecified; I10 Essential (primary) hypertension
CPT/HCPCS: 99284 ×2; 96374; 96372; 80053; 36416; 82948; 81003; 85027; 74176; J2405; J1815; J7030

== ENCOUNTER 2017-02-05 12:36 | Emergency (ER) | payer MEDICARE ==
[2017-02-05 13:40] LABS: ANION GAP 11.5 (7-16); BLOOD UREA NITROGEN 12 mg/dL (9-20); CARBON DIOXIDE 26.5 mmol/L (22-30); CKMB 5.5 ug/L (0-6); CREATININE 1.1 mg/dL (0.66-1.25); EST GLOMERULAR FILTRATION RATE > 60 ml/min; GLUCOSE,RANDOM 221 mg/dL (70-110)
[2017-02-05 13:41] LABS: BASO % 1.9 % (0-6); EOS % 2.4 % (0-6); GRAN % 49.7 % (47-80); HEMATOCRIT 36.3 % (42.0-52.0); HEMOGLOBIN 11.3 gm/dl (14.0-18.0); LYMPH % 42.1 % (16-45); MEAN CELL VOLUME 101.4 fl (81-97); MEAN CORPUSCULAR HGB CONC 31.1 g/dl (32-36); MEAN PLATELET VOLUME 11.4 fl (7.4-10.4); MONO % 3.9 % (0-9); RED BLOOD COUNT 3.58 M/uL (4.40-5.70); RED CELL DISTRIBUTION WIDTH 18.1 % (11.5-14.5); TROPONIN I 0.538 ng/mL (0.00-0.034); WHITE BLOOD COUNT W/O DIFF 6.7 K/uL (4.2-12.2)
[2017-02-05 13:43] LABS: ARTERIAL BLOOD GAS BASE EXCESS -7.8 mmol/L (-2 - 3); ARTERIAL BLOOD GAS HCO3 24.2 mmol/L (18-23); ARTERIAL BLOOD GAS PCO2 90.5 mmHg (35-48); ARTERIAL BLOOD GAS pH 7.06 (7.35-7.45); CARBOXYHEMOGLOBIN 1.7 % (0-1.5); METHEMOGLOBIN 0.3 % (0.0-1.5); O2 HEMOGLOBIN 31.9 % vol (94-99); TOTAL HEMOGLOBIN 11.1 g/dl (14-18)
[2017-02-05 13:44] LABS: ARTERIAL BLD GAS O2 SATURATION 32.6 % (95-98)
[2017-02-05 13:47] LABS: MEAN CORPUSCULAR HEMOGLOBIN 31.5 pg (27-33); PLATELET COUNT 59 K/uL (130-400)
--- NOTE | 2017-02-05 17:58 | Emergency Department Record ---
History of Present Illness - General Chief Complaint: Code Adult Stated Complaint: DOA Time Seen by Provider: 02/05/17 13:10 Source: EMS Mode of Arrival: EMS Limitations: Altered mental status - History of Present Illness Initial Comments: pt was brought in in cardiac arrest. he had been seen at home a few minutes prior and was not complaining then he was found unresponsive. 911 was called. cpr was started. pt appeared to be in PEA at the scene and was given multiple doses of epi and bicarb with no response. pt went into vfib and was shocked twice. pt was brought in w cpr in progress, pt is known to dept and is a full code as confirmed by family. pt has a hx of ca and is being treated for it. he also had a new recent compression fx and had surgery on his back last week. he was feeling great all weekend [place] MD Complaint: Found unresponsive Onset/Timin -: Minute(s) Place: Home Bystander CPR Performed: Yes AED Applied by Bystander/Contact Worker Lithography: Yes Shock Advised: Yes Number of Shocks Delivered: 2 Downtime Before ACLS Arrival (mins): 10 Initial Findings in the Field: Unresponsive, PEA, VTACH/VFIB Associated Injuries: No Treatments Prior to Arrival: BMV, Chest compressions, Defribrillated shocks #, Intubation, Epinephrine mgs #, Glucose, Sodium bicarbonate - Jono Coma Scale Eye Response: (1) No response Motor Response: (1) No motor response Verbal Response: (1) No verbal response Jono Total: 3 - Related Data Home Medications Medication Instructions Recorded Confirmed Last Taken Atenolol 12.5 mg PO DAILY 08/31/16 02/05/17 1 Day Ago ~12/26/16 Atorvastatin Calcium 40 mg PO QHS 08/31/16 02/05/17 1 Day Ago ~12/26/16 Cholecalciferol (Vitamin D3) 5,000 unit PO DAILY 08/31/16 02/05/17 1 Day Ago [Vitamin D3] ~12/26/16 Insulin Glargine,Hum.rec.anlog 70 unit SQ QHS 08/31/16 02/05/17 1 Day Ago [Lantus] ~12/26/16 Insulin Lispro [Humalog] 1 unit SQ ASDIR 08/31/16 02/05/17 1 Day Ago ~12/26/16 Omeprazole 40 mg PO DAILY 08/31/16 02/05/17 1 Day Ago ~12/26/16 Potassium Chloride [Klor-Con] 20 meq PO BID 08/31/16 02/05/17 1 Day Ago ~12/26/16 Ramipril [Altace] 5 mg PO DAILY 08/31/16 02/05/17 1 Day Ago ~12/26/16 Docusate Sodium [Colace] 100 mg PO DAILY 12/10/16 02/05/17 1 Day Ago ~12/26/16 Hydrocodone/Acetaminophen [[place] 1 tab PO Q6H PRN 12/10/16 02/05/17 1 Day Ago 7.5mg/325mg] ~12/26/16 Lactulose 15 gm PO TID 12/10/16 02/05/17 1 Day Ago ~12/26/16 Hydrocodone/Acetaminophen [[place] 1 tab PO Q6H PRN 12/27/16 02/05/17 1 Day Ago 7.5mg/325mg] ~12/26/16 Oxycodone HCl [Oxycontin] 10 mg PO Q12H 12/27/16 02/05/17 1 Day Ago ~12/26/16 Allergies Allergy/AdvReac Type Severity Reaction Status Date / Time colesevelam HCl AdvReac NAUSEA AND Verified 02/05/17 13:05 [From WelChol] VOMITING Travel Screening - Travel/Exposure Within Last 30 Days Have you traveled within the last 30 days?: No Review of Systems ROS unobtainable: Due to endotracheal tube, Due to mental status Past Medical History - SOCIAL HISTORY Smoking Status: Never smoker Alcohol Use: None Drug Use: None - RESPIRATORY Hx Respiratory Disorders: No - CARDIOVASCULAR Hx Cardio Disorders: Yes Hx Hypertension: Yes Hx Pacemaker/Defib: Yes Comment:: PVD - NEURO Hx Neuro Disorders: No - GI Hx GI Disorders: Yes Hx Diverticulitis: Yes - Hx Genitourinary Disorders: No Comment:: CKD - ENDOCRINE Hx Endocrine Disorders: Yes Hx Diabetes: Yes - MUSCULOSKELETAL Hx Musculoskeletal Disorders: Yes Hx Arthritis: Yes - PSYCH Hx Psych Problems: No - HEMATOLOGY/ONCOLOGY Hx Hematology/Oncology Disorders: No Hx Cancer: Yes (Pancreatic oct 27) Hx Chemotherapy: Yes Family Medical History Any Significant Family History?: Yes Family Hx Comment (NOT TO BE USED IN PLACE OF ITEMS BELOW): son- cancer Physical Exam - General General Appearance: Other (full arrest) Limitations: Altered mental status - Eye Eye exam: Other (pupils fixed and dilated. no corneal reaction.) Pupils: Mydriatic. negative: Normal accommodation - ENT ENT exam: Normal exam Ear exam: Normal external inspection Nasal Exam: Normal inspection Mouth exam: Other (et tube) - Respiratory Respiratory exam: Other (lung sounds w bagging, more on the right, et tube pulled back. now equal. bloody frothy sputum coming through ET tube) - Cardiovascular Cardiovascular Exam: negative: Regular rate, Normal rhythm, Normal heart sounds - GI/Abdominal GI/Abdominal exam: Distended - Extremities Extremities exam: Other (cold) - Neurological Neurological exam: Altered Course - Reevaluation(s) Reevaluation #1: 02/05/17 18:15 pt did not respond, was in agonal rhythm and then asystole. d/w family and called Medical Decision Making - Lab Data Result diagrams: 02/05/17 12:45 02/05/17 12:45 Lab Results 02/05/17 02/05/17 02/05/17 Range/Units 12:45 12:45 12:45 WBC 6.7 (4.2-12.2) K/uL RBC 3.58 L (4.40-5.70) M/uL Hgb 11.3 L (14.0-18.0) gm/dl Hct 36.3 L (42.0-52.0) % MCV 101.4 H (81-97) fl MCH 31.5 (27-33) pg MCHC 31.1 L (32-36) g/dl RDW 18.1 H (11.5-14.5) % Plt Count 59 L (130-400) K/uL MPV 11.4 H (7.4-10.4) fl Gran % 49.7 (47-80) % Lymphocytes % 42.1 (16-45) % Monocytes % 3.9 (0-9) % Eosinophils % 2.4 (0-6) % Basophils % 1.9 (0-6) % Puncture Site Right wrist pCO2 90.5 H* (35-48) mmHg pO2 30.0 L* (83-108) mmHg HCO3 24.2 H (18-23) mmol/L Oxyhemoglobin 31.9 L (94-99) % vol ABG pH 7.06 L* (7.35-7.45) ABG O2 Saturation 32.6 L* (95-98) % ABG Base Excess -7.8 L (-2 - 3) mmol/L Damon Test Not Reportable Carboxyhemoglobin 1.7 H (0-1.5) % Methemoglobin 0.3 (0.0-1.5) % Total Hemoglobin 11.1 L (14-18) g/dl Actual Respiration Rate (10-18) /MIN FiO2 Not Reportable Sodium 137 (136-145) mmol/L Potassium 3.7 (3.5-5.1) mmol/L Chloride 99 (98-107) mmol/L Carbon Dioxide 26.5 (22-30) mmol/L Anion Gap 11.5 (7-16) BUN 12 (9-20) mg/dL Creatinine 1.1 (0.66-1.25) mg/dL Estimated GFR > 60 ml/min Random Glucose 221 H (70-110) mg/dL Calcium 8.0 L (8.5-10.1) mg/dL CK-MB (CK-2) 5.5 (0-6) ug/L Troponin I 0.538 H* (0.00-0.034) ng/mL Critical Care Time Critical Care Time: Yes Total Critical Care Time: 60 Disposition Disposition: Other Clinical Impression: Cardiac arrest Disposition: / Forms: Patient Portal Access Critical Care Note - Critical Care Note Total Time (mins): 60
== END 2017-02-05 16:06 | disposition expired ==
LOC: ER 12:36
DX: I46.9 Cardiac arrest, cause unspecified (principal); C25.9 Malignant neoplasm of pancreas, unspecified; E11.9 Type 2 diabetes mellitus without complications; I10 Essential (primary) hypertension; Z95.0 Presence of cardiac pacemaker; Z79.4 Long term (current) use of insulin
CPT/HCPCS: 36600; 80048; 82375; 82553; 82803; 84484; 85025; 99285